=== PATIENT | female | born 1985 | race Caucasian/White ===

== ENCOUNTER 2017-08-10 23:17 | Emergency (ER) | payer BC ==
[2017-08-10 23:34] VITALS: PULSE 88; RESP 20; TEMP 98.2; O2SAT 99
[2017-08-10] MEDS ORDERED: SODIUM CHLORIDE 0.9% 1000ML 1,000 ML IV ONE (23:56)
[2017-08-11 00:04] LABS: BASOPHILS % (AUTO) 1 % (0-3); EOSINOPHILS % (AUTO) 1 % (0-9); HEMATOCRIT 40 % (35-47); LYMPHOCYTES % (AUTO) 42.6 % (10-50); MEAN CORPUSCULAR HEMOGLOBIN 29.5 pg (27.0-32.0); MEAN CORPUSCULAR HGB CONC 35.2 gm/dl (32.0-36.0); MEAN CORPUSCULAR VOLUME 84 fL (81-99); NEUTROPHILS % (AUTO) 50.6 % (37-80)
[2017-08-11 00:15] LABS: CALCIUM 9.1 mg/dl (8.5-10.1); CARBON DIOXIDE 26.6 mEq/L (21-32); CREATININE 0.68 mg/dl (0.60-1.00); POTASSIUM 3.7 mMol/L (3.5-5.1)
[2017-08-11 00:16] VITALS: BP 114/80
== END 2017-08-11 01:20 | disposition home or self-care (01) ==
LOC: ED 23:17
DX: H61.21 Impacted cerumen, right ear (principal); E86.0 Dehydration
CPT/HCPCS: 80048; 85025; 96365; 99283; 99284

== ENCOUNTER 2017-08-20 21:27 | Emergency (ER) | payer OTHER, BC ==
[2017-08-20 21:48] VITALS: RESP 20; TEMP 97.1
[2017-08-20 22:11] VITALS: BP 123/83; PULSE 93; O2SAT 98
== END 2017-08-20 22:06 | disposition home or self-care (01) | DRG 125 ==
LOC: ED 21:27
DX: S05.12XA Contusion of eyeball and orbital tissues, left eye, initial encounter (principal); Y33.XXXA Other specified events, undetermined intent, initial encounter; Y99.0 Civilian activity done for income or pay
CPT/HCPCS: 99282